=== PATIENT | female | born 1990 | race Caucasian/White ===

== ENCOUNTER 2023-06-18 22:27 | Outpatient (CLI) | payer BC ==
[2023-06-18] VITALS (7 sets, daily range): BP systolic 127–144; BP diastolic 78–88; PULSE 95–106; TEMP 98.7
[~2023-06-18] VITALS: Ht 162.6 cm; Wt 117.3 kg
[~2023-06-18 22:27] MED LIST: MOTRIN 600600 MG/TAB PO; MOUNJARO7.5 MG/0.5 SQ; NORCO 325 MG-51 TAB PO; PRENATAL TABLET PO; PRILOSEC 20MG20 MG PO; PROMETHAZINE12.5 M5 PO; VALTREX 50500 MG/TAB PO
[2023-06-18] MEDS ORDERED: LR 1,000 ML IV PRN (23:15)
[2023-06-18 23:21] LABS: COLLECTION METHOD CLEAN CATCH
[2023-06-18 23:28] LABS: BASO % 0.2 % (0.0-2.0); EOS # 0.1 K/mm3 (0.0-0.7); EOS % 0.5 % (0.0-4.0); GRAN # 10.4 K/mm3 (1.4-6.5); GRAN % 80.4 % (42.2-75.2); HEMOGLOBIN 10.7 g/dl (12.5-16.0); LYMPH # 1.6 K/mm3 (1.2-3.4); LYMPH % 12.3 % (20.0-51.0); MEAN CELL VOLUME 87 fl (80.0-100.0); MEAN CORPUSCULAR HEMOGLOBIN 29 pg (27-31); MEAN CORPUSCULAR HGB CONC 34 g/dl (33.0-37.0); MEAN PLATELET VOLUME 9.8 fl (7.4-10.4); MONO # 0.7 K/mm3 (0.1-0.6); MONO % 5.5 % (1.7-9.3); PLATELET COUNT 254 K/mm3 (130-400); RED BLOOD COUNT 3.64 M/mm3 (4.10-5.30)
[2023-06-18 23:29] LABS: URINE APPEARANCE CLEAR (CLEAR/HAZY); URINE BLOOD NEGATIVE (NEGATIVE); URINE COLOR YELLOW (YELLOW); URINE GLUCOSE NEGATIVE (NEGATIVE); URINE KETONE NEGATIVE (NEGATIVE); URINE NITRATE NEGATIVE (NEGATIVE); URINE PROTEIN(semi-quant) NEGATIVE (NEGATIVE); URINE UROBILINOGEN 0.2 E.U/dL (0.2-1.0)
[2023-06-18 23:29] LABS: HEMATOCRIT 31.7 % (37.0-47.0)
[2023-06-18] MEDS ORDERED: PROTONIX 40MG T40 MG PO (23:32)
[2023-06-18] MEDS ORDERED: PROFERRIN ES12 MG PO (23:32)
[2023-06-18] MEDS ORDERED: TRANDATE 100MG100 MG PO (23:33)
[2023-06-18 23:36] LABS: ALBUMIN 2.8 g/dL (3.5-5.0); BILIRUBIN,TOTAL 0.3 mg/dL (0.2-1.2); CALCIUM 9.3 mg/dL (8.4-10.2); CREATININE, serum 0.59 mg/dL (0.57-1.11); POTASSIUM 3.6 mEq/L (3.5-4.5); TOTAL PROTEIN 6.5 g/dl (6.2-8.1)
--- NOTE | 2023-06-19 00:05 | NUR ---
PATIENT EDUCATED ON NEW ORDERS OF INCREASING LABETALOL TO 200MG TWICE DAILY INSTEAD OF PRIOR ORDER OF 100MG TWICE DAILY PER DR. JERONIMO, STAYING WELL HYDRATED, KEEPING SCHEDULED APPOINTMENTS. PATIENT EDUCATED ON IMPORTANCE OF MONITORING BLOOD PRESSURES WITH THE INCREASE OF THIS MEDICATION. QUESTIONS INVITED AND ANSWERED. PATIENT AND SPOUSE AMBULATORY OFF UNIT.
== END 2023-06-19 00:05 | disposition home or self-care (01) ==
LOC: COL.ER 22:27 → LDRO 22:27 → EDSTATUS 22:38 → LDRO 06-19 00:05
PROVIDERS: Student in an Organized Health Care Education/Training Program
DX: O16.3 Unspecified maternal hypertension, third trimester (principal); Z3A.35 35 weeks gestation of pregnancy